=== PATIENT | male | born 1990 | race African-American/Black ===

== ENCOUNTER 2017-03-09 21:52 | Emergency (ER) | payer OTHER ==
[~2017-03-09] VITALS: Ht 180.3 cm; Wt 68.2 kg
[2017-03-09] MEDS ORDERED: IPRATROPIUM BROMIDE 0.5 MG/2.5 ML NEB SOLUTION NEB ONE (22:00)
[2017-03-09] MEDS ORDERED: ALBUTEROL SULFATE 5 MG/ML 20 ML NEB SOLN [BULK] NEB ONE (22:00)
[2017-03-09] MEDS ORDERED: 0.9% SODIUM CHLORIDE 15 ML NEB SOLUTION NEB ONE (22:18)
[2017-03-10 01:10] VITALS: BP 142/75
== END 2017-03-10 01:46 | disposition home or self-care (01) ==
LOC: EDBD 21:53 → EMS 21:53
DX: J40 Bronchitis, not specified as acute or chronic (principal); F17.210 Nicotine dependence, cigarettes, uncomplicated
CPT/HCPCS: 71010; 94644; 99285; 99406; J7611

== ENCOUNTER 2017-12-27 20:18 | Emergency (ER) | payer OTHER ==
[~2017-12-27] VITALS: Ht 182.9 cm; Wt 68.2 kg
[2017-12-27] MEDS ORDERED: ALBUTEROL SULFATE HFA 90 MCG/PUFF 8 GM INHALER IH ONE (21:30)
[2017-12-27 22:13] VITALS: BP 121/79
== END 2017-12-27 22:15 | disposition home or self-care (01) ==
LOC: EMS 20:19
DX: J40 Bronchitis, not specified as acute or chronic (principal); F12.90 Cannabis use, unspecified, uncomplicated; F17.210 Nicotine dependence, cigarettes, uncomplicated
CPT/HCPCS: 99283; J3535

== ENCOUNTER 2018-03-05 16:09 | Emergency (ER) | payer OTHER ==
[~2018-03-05] VITALS: Ht 182.9 cm; Wt 68.2 kg
[2018-03-05 16:13] VITALS: BP 161/97
[2018-03-05] MEDS ORDERED: IBUPROFEN 600 MG TABLET PO ONE (16:45)
[2018-03-05] MEDS ORDERED: HydrOXYzine PAMOATE 50 MG CAPSULE PO ONE (16:45)
== END 2018-03-05 17:20 | disposition home or self-care (01) ==
LOC: EDSEX 16:10 → EMS 16:10
DX: F41.9 Anxiety disorder, unspecified (principal); R19.7 Diarrhea, unspecified; J40 Bronchitis, not specified as acute or chronic; F12.90 Cannabis use, unspecified, uncomplicated

== ENCOUNTER 2018-03-17 18:38 | Emergency (ER) | payer OTHER ==
[~2018-03-17] VITALS: Ht 182.9 cm; Wt 69.0 kg
[2018-03-17] MEDS ORDERED: HydrOXYzine PAMOATE 25 MG CAPSULE PO ONE (21:00)
[2018-03-17 21:35] VITALS: BP 130/80
== END 2018-03-17 21:41 | disposition home or self-care (01) ==
LOC: EMS 18:38 → EDSEX 18:38 → EMS 21:41
DX: F41.9 Anxiety disorder, unspecified (principal); R06.2 Wheezing; J40 Bronchitis, not specified as acute or chronic; F12.90 Cannabis use, unspecified, uncomplicated

== ENCOUNTER 2019-03-30 20:53 | Emergency (ER) | payer OTHER ==
[~2019-03-30] VITALS: Ht 185.4 cm; Wt 68.2 kg
[2019-03-30] MEDS ORDERED: ACETAMINOPHEN 500 MG TABLET PO ONE (21:00)
[2019-03-30] MEDS ORDERED: IBUPROFEN 800 MG TABLET PO ONE (21:00)
[2019-03-31 01:36] VITALS: BP 121/86
== END 2019-03-31 01:40 | disposition left against medical advice (07) ==
LOC: EMS 20:54
DX: R50.9 Fever, unspecified (principal); Z53.21 Procedure and treatment not carried out due to patient leaving prior to being seen by health care provider

== ENCOUNTER 2019-11-01 10:19 | Emergency (ER) | payer SELFPAY ==
[~2019-11-01] VITALS: Ht 182.9 cm; Wt 63.6 kg
[2019-11-01] MEDS ORDERED: METHOCARBAMOL 500 MG TABLET PO ONE (11:00)
[2019-11-01] MEDS: KETOROLAC TROMETHAMINE 60 MG/2 ML VIAL IM ONE ×2 (11:13→11:22)
[2019-11-01 11:45] VITALS: BP 127/75
== END 2019-11-01 11:58 | disposition home or self-care (01) ==
LOC: EMS 10:25
DX: S39.012A Strain of muscle, fascia and tendon of lower back, initial encounter (principal); S13.4XXA Sprain of ligaments of cervical spine, initial encounter; F12.90 Cannabis use, unspecified, uncomplicated; V49.9XXA Car occupant (driver) (passenger) injured in unspecified traffic accident, initial encounter; Y93.89 Activity, other specified; Y92.89 Other specified places as the place of occurrence of the external cause; Y99.8 Other external cause status
CPT/HCPCS: 99283; J1885

== ENCOUNTER 2019-11-03 15:49 | Emergency (ER) | payer SELFPAY ==
[~2019-11-03] VITALS: Ht 182.9 cm; Wt 63.6 kg
[2019-11-03 16:40] VITALS: BP 123/65
== END 2019-11-03 16:44 | disposition home or self-care (01) ==
LOC: EMS 15:51
DX: Z02.79 Encounter for issue of other medical certificate (principal); V49.88XA Car occupant (driver) (passenger) injured in other specified transport accidents, initial encounter; Y93.89 Activity, other specified; Y92.89 Other specified places as the place of occurrence of the external cause; Y99.8 Other external cause status
CPT/HCPCS: Z7502